=== PATIENT | female | born 1990 | race Asian ===

== ENCOUNTER 2025-02-26 12:00 | Emergency (ER) | payer OTHER ==
[~2025-02-26] VITALS: Ht 170.2 cm; Wt 56.7 kg
[2025-02-26 12:40] VITALS: BP 133/71; TEMP 98.1; O2SAT 100
== END 2025-02-26 12:40 | disposition home or self-care (01) ==
LOC: ER 12:15
DX: S61.215A Laceration without foreign body of left ring finger without damage to nail, initial encounter (principal); W26.0XXA Contact with knife, initial encounter; Y93.89 Activity, other specified; Y92.89 Other specified places as the place of occurrence of the external cause; Y99.8 Other external cause status